=== PATIENT | female | born 1950 | race Caucasian/White ===

== ENCOUNTER 2018-08-31 02:15 | Outpatient (RCR) | payer MEDICARE, BC, SELFPAY ==
[2018-08-16] MEDS: Normal Saline Flush 10 ML SYR IVP (08:39)
[2018-08-16] MEDS: Heparin 500 UNITS/5 ML SYRINGE IVP (08:40)
[2018-08-16 08:45] LABS: Abs Immature Grans 0.02 k/cumm (0.0-0.09); Absolute Basophil Count 0.01 k/cumm (0.0-0.2); Absolute Lymphocyte Count 1.43 k/cumm (1.2-3.4); Absolute Monocyte Count 0.74 k/cumm (0.11-0.7); Absolute Neutrophil Count 3.87 k/cumm (1.2-6.7); Basophils % 0.2; Eosinophils % 3.2; HCT 33.8 % (36.0-46.0); HGB 10.9 g/dL (12.0-15.5); Immature Grans % 0.3; Lymphocytes % 22.8; Mean Corp. HGB Concentration 32.2 g/dL (32.0-36.0); Mean Corpuscular Hemoglobin 28.4 pg (27.0-33.0); Mean Platelet Volume 9.9 fL (8.0-11.0); Monocytes % 11.8; Neutrophils % 61.7; Platelet Count 185 x1000/uL (130-400); RBC 3.84 m/cumm (4.00-5.20); RBC Distribution Width 16.6 % (11.7-14.6); White Blood Cell Count 6.27 k/cumm (4.4-10.8)
[2018-08-16 09:06] LABS: ALT 24 U/L (12-78); AST 20 U/L (15-37); Albumin 3.4 g/dL (3.4-5.0); Alkaline Phosphatase 147 U/L (46-116); Anion Gap 9.4 mmol/L (3-11); BUN 17 mg/dL (7-18); Bilirubin, Total 0.2 mg/dL (0.2-1.0); CO2 25.6 mmol/L (21.0-32.0); CREATININE 0.68 mg/dL (0.55-1.02); Chloride 105 mmol/L (98-107); Glucose 216 mg/dL (70-100); Potassium 4.6 mmol/L (3.5-5.1); Sodium 140 mmol/L (136-145); Total Protein 6.8 g/dL (6.4-8.2)
[2018-08-24] MEDS: Normal Saline Flush 10 ML SYR IVP (09:47)
[2018-08-24] MEDS: Heparin 500 UNITS/5 ML SYRINGE IVP (09:48)
[2018-08-24 10:06] LABS: Abs Immature Grans 0.01 k/cumm (0.0-0.09); Absolute Eosinophil Count 0.08 k/cumm (0.0-0.7); Absolute Lymphocyte Count 0.82 k/cumm (1.2-3.4); Absolute Monocyte Count 0.54 k/cumm (0.11-0.7); Absolute Neutrophil Count 4.04 k/cumm (1.2-6.7); Eosinophils % 1.5; HCT 34.9 % (36.0-46.0); HGB 11.2 g/dL (12.0-15.5); Immature Grans % 0.2; Lymphocytes % 14.9; Mean Corp. HGB Concentration 32.1 g/dL (32.0-36.0); Mean Corpuscular Hemoglobin 28.2 pg (27.0-33.0); Mean Corpuscular Volume 87.9 fL (80-95); Mean Platelet Volume 9.8 fL (8.0-11.0); Monocytes % 9.8; Neutrophils % 73.6; Platelet Count 172 x1000/uL (130-400); RBC 3.97 m/cumm (4.00-5.20); RBC Distribution Width 16.9 % (11.7-14.6); White Blood Cell Count 5.49 k/cumm (4.4-10.8)
[2018-08-24 10:12] LABS: ALT 30 U/L (12-78); AST 20 U/L (15-37); Albumin 3.6 g/dL (3.4-5.0); Alkaline Phosphatase 144 U/L (46-116); Anion Gap 10.8 mmol/L (3-11); BUN 20 mg/dL (7-18); Bilirubin, Total 0.3 mg/dL (0.2-1.0); CO2 24.2 mmol/L (21.0-32.0); Calcium 9.2 mg/dL (8.5-10.1); Chloride 102 mmol/L (98-107); Glucose 240 mg/dL (70-100); Potassium 4.9 mmol/L (3.5-5.1); Sodium 137 mmol/L (136-145); Total Protein 7.1 g/dL (6.4-8.2)
[2018-08-31] MEDS: Normal Saline Flush 10 ML SYR IVP (13:48)
[2018-08-31] MEDS: Heparin 500 UNITS/5 ML SYRINGE IVP (13:49)
[2018-08-31 14:19] LABS: Abs Immature Grans 0.01 k/cumm (0.0-0.09); Absolute Basophil Count 0.01 k/cumm (0.0-0.2); Absolute Eosinophil Count 0.19 k/cumm (0.0-0.7); Absolute Lymphocyte Count 0.81 k/cumm (1.2-3.4); Absolute Monocyte Count 0.75 k/cumm (0.11-0.7); Absolute Neutrophil Count 3.45 k/cumm (1.2-6.7); Basophils % 0.2; Eosinophils % 3.6; HCT 33.5 % (36.0-46.0); HGB 10.9 g/dL (12.0-15.5); Immature Grans % 0.2; Lymphocytes % 15.5; Mean Corp. HGB Concentration 32.5 g/dL (32.0-36.0); Mean Corpuscular Hemoglobin 28.8 pg (27.0-33.0); Mean Corpuscular Volume 88.4 fL (80-95); Mean Platelet Volume 9.4 fL (8.0-11.0); Monocytes % 14.4; Neutrophils % 66.1; Platelet Count 152 x1000/uL (130-400); RBC 3.79 m/cumm (4.00-5.20); RBC Distribution Width 17.2 % (11.7-14.6); White Blood Cell Count 5.22 k/cumm (4.4-10.8)
[2018-08-31 14:53] LABS: ALT 30 U/L (12-78); AST 22 U/L (15-37); Albumin 3.8 g/dL (3.4-5.0); Alkaline Phosphatase 133 U/L (46-116); Anion Gap 9.6 mmol/L (3-11); BUN 14 mg/dL (7-18); Bilirubin, Total 0.2 mg/dL (0.2-1.0); CO2 26.4 mmol/L (21.0-32.0); CREATININE 0.68 mg/dL (0.55-1.02); Calcium 9.3 mg/dL (8.5-10.1); Chloride 102 mmol/L (98-107); Glucose 120 mg/dL (70-100); Potassium 4.4 mmol/L (3.5-5.1); Sodium 138 mmol/L (136-145); Total Protein 7.2 g/dL (6.4-8.2)
== END 2018-09-05 23:59 | disposition home or self-care (01) ==
LOC: INF 02:15
PROVIDERS: PCP Family Medicine; Visit Provider Internal Medicine Hematology & Oncology
DX: C25.0 Malignant neoplasm of head of pancreas (principal); Z45.2 Encounter for adjustment and management of vascular access device
CPT/HCPCS: 36591; 80053; 85025

== ENCOUNTER 2018-09-18 13:51 | Outpatient (RCR) | payer MEDICARE, BC, SELFPAY ==
[2018-09-07] MEDS: Normal Saline Flush 10 ML SYR IVP (07:20)
[2018-09-07] MEDS: Heparin 500 UNITS/5 ML SYRINGE IV (07:20)
[2018-09-07 07:50] LABS: Abs Immature Grans 0.02 k/cumm (0.0-0.09); Absolute Basophil Count 0.01 k/cumm (0.0-0.2); Absolute Eosinophil Count 0.22 k/cumm (0.0-0.7); Absolute Lymphocyte Count 0.36 k/cumm (1.2-3.4); Absolute Monocyte Count 0.78 k/cumm (0.11-0.7); Absolute Neutrophil Count 3.37 k/cumm (1.2-6.7); Basophils % 0.2; Eosinophils % 4.6; HCT 32.8 % (36.0-46.0); Immature Grans % 0.4; Lymphocytes % 7.6; Mean Corp. HGB Concentration 33.5 g/dL (32.0-36.0); Mean Corpuscular Hemoglobin 30.1 pg (27.0-33.0); Mean Corpuscular Volume 89.9 fL (80-95); Mean Platelet Volume 9.6 fL (8.0-11.0); Monocytes % 16.4; Neutrophils % 70.8; Platelet Count 118 x1000/uL (130-400); RBC 3.65 m/cumm (4.00-5.20); RBC Distribution Width 17.6 % (11.7-14.6); White Blood Cell Count 4.76 k/cumm (4.4-10.8)
[2018-09-07 08:09] LABS: ALT 86 U/L (12-78); AST 42 U/L (15-37); Alkaline Phosphatase 164 U/L (46-116); Anion Gap 8.8 mmol/L (3-11); BUN 14 mg/dL (7-18); Bilirubin, Total 0.2 mg/dL (0.2-1.0); CO2 26.2 mmol/L (21.0-32.0); CREATININE 0.68 mg/dL (0.55-1.02); Calcium 8.8 mg/dL (8.5-10.1); Chloride 99 mmol/L (98-107); Glucose 298 mg/dL (70-100); Potassium 4.3 mmol/L (3.5-5.1); Sodium 134 mmol/L (136-145); Total Protein 6.4 g/dL (6.4-8.2)
[2018-09-14] MEDS: Heparin 500 UNITS/5 ML SYRINGE IV (10:35)
[2018-09-14] MEDS: Normal Saline Flush 10 ML SYR IVP (10:40)
[2018-09-14 10:52] LABS: Abs Immature Grans 0.06 k/cumm (0.0-0.09); Absolute Basophil Count 0.01 k/cumm (0.0-0.2); Absolute Eosinophil Count 0.18 k/cumm (0.0-0.7); Absolute Lymphocyte Count 0.29 k/cumm (1.2-3.4); Absolute Neutrophil Count 4.25 k/cumm (1.2-6.7); Basophils % 0.2; Eosinophils % 3.1; HCT 33.7 % (36.0-46.0); HGB 11.2 g/dL (12.0-15.5); Mean Corp. HGB Concentration 33.2 g/dL (32.0-36.0); Mean Corpuscular Hemoglobin 30.4 pg (27.0-33.0); Mean Corpuscular Volume 91.3 fL (80-95); Mean Platelet Volume 8.8 fL (8.0-11.0); Monocytes % 17.3; Neutrophils % 73.4; Platelet Count 144 x1000/uL (130-400); RBC 3.69 m/cumm (4.00-5.20); RBC Distribution Width 17.7 % (11.7-14.6); White Blood Cell Count 5.79 k/cumm (4.4-10.8)
[2018-09-14 11:03] LABS: ALT 106 U/L (12-78); AST 99 U/L (15-37); Albumin 2.3 g/dL (3.4-5.0); Alkaline Phosphatase 272 U/L (46-116); Anion Gap 9.7 mmol/L (3-11); BUN 10 mg/dL (7-18); Bilirubin, Total 0.2 mg/dL (0.2-1.0); CO2 26.3 mmol/L (21.0-32.0); CREATININE 0.68 mg/dL (0.55-1.02); Calcium 8.9 mg/dL (8.5-10.1); Chloride 100 mmol/L (98-107); Glucose 202 mg/dL (70-100); Sodium 136 mmol/L (136-145); Total Protein 6.9 g/dL (6.4-8.2)
[2018-09-18] MEDS: Heparin 500 UNITS/5 ML SYRINGE IV (14:02)
[2018-09-18] MEDS: Normal Saline Flush 10 ML SYR IVP (14:02)
[2018-09-18 14:33] LABS: ALT 57 U/L (12-78); AST 40 U/L (15-37); Albumin 3.3 g/dL (3.4-5.0); Alkaline Phosphatase 272 U/L (46-116); Anion Gap 9.3 mmol/L (3-11); BUN 14 mg/dL (7-18); Bilirubin, Total 0.2 mg/dL (0.2-1.0); CO2 25.7 mmol/L (21.0-32.0); Calcium 8.5 mg/dL (8.5-10.1); Chloride 99 mmol/L (98-107); Glucose 242 mg/dL (70-100); Potassium 4.3 mmol/L (3.5-5.1); Sodium 134 mmol/L (136-145); Total Protein 6.9 g/dL (6.4-8.2)
[2018-09-18 14:52] LABS: Abs Immature Grans 0.03 k/cumm (0.0-0.09); Absolute Basophil Count 0.01 k/cumm (0.0-0.2); Absolute Eosinophil Count 0.11 k/cumm (0.0-0.7); Absolute Lymphocyte Count 0.42 k/cumm (1.2-3.4); Absolute Neutrophil Count 4.87 k/cumm (1.2-6.7); Basophils % 0.2; Eosinophils % 1.8; HCT 34.3 % (36.0-46.0); HGB 11.3 g/dL (12.0-15.5); Immature Grans % 0.5; Lymphocytes % 6.8; Mean Corp. HGB Concentration 32.9 g/dL (32.0-36.0); Mean Corpuscular Hemoglobin 30.3 pg (27.0-33.0); Mean Platelet Volume 10.2 fL (8.0-11.0); Monocytes % 11.4; Neutrophils % 79.3; Platelet Count 167 x1000/uL (130-400); RBC 3.73 m/cumm (4.00-5.20); RBC Distribution Width 17.7 % (11.7-14.6); White Blood Cell Count 6.14 k/cumm (4.4-10.8)
== END 2018-10-06 23:59 | disposition home or self-care (01) ==
LOC: INF 13:51
PROVIDERS: PCP Family Medicine; Visit Provider Internal Medicine Hematology & Oncology
DX: C25.0 Malignant neoplasm of head of pancreas (principal); Z45.2 Encounter for adjustment and management of vascular access device
CPT/HCPCS: 36591; 80053; 85025

== ENCOUNTER 2024-07-31 11:44 | Outpatient (RCR) | payer MEDICARE, BC, SELFPAY ==
[2024-07-31] MEDS: Normal Saline Flush 10 ML SYR IVP (12:05)
[2024-07-31 12:39] LABS: Abs Immature Grans 0.06 10^3/uL (0.0-0.06); Absolute Basophil Count 0.02 10^3/uL (0.0-0.2); Absolute Eosinophil Count 0.19 10^3/uL (0.0-0.7); Absolute Lymphocyte Count 0.83 10^3/uL (1.2-3.4); Absolute Monocyte Count 0.79 10^3/uL (0.1-0.8); Absolute Neutrophil Count 6.34 10^3/uL (1.2-6.7); Basophils % 0.2 %; Eosinophils % 2.3 %; HGB 9.3 g/dL (11.2-15.7); Immature Grans % 0.7 %; Lymphocytes % 10.1 %; MCH 29.2 pg (27.0-33.0); MCHC 33.2 % (32.0-36.0); MCV 88 fL (80-95); MPV 9.2 fL (8.0-11.0); Monocytes % 9.6 %; Neutrophils % 77.1 %; Platelet Count 221 10^3/uL (130-400); RBC 3.19 10^6/uL (3.93-5.22); RDW 11.9 % (11.7-14.6); RDW-SD 38.4 fL; Reticulocyte 2.1 % (0.5-2.4); WBC 8.23 10^3/uL (4.4-10.8)
[2024-07-31 13:00] LABS: ALT 50 U/L (14-59); AST 38 U/L (15-37); Albumin 3.7 g/dL (3.4-5.0); Alkaline Phosphatase 122 U/L (46-116); Anion Gap 9.6 mmol/L (3-11); BUN 19 mg/dL (7-18); Bilirubin, Total 0.2 mg/dL (0.2-1.0); CO2 26.4 mmol/L (21.0-32.0); CREATININE 0.8 mg/dL (0.55-1.02); Calcium 9.2 mg/dL (8.5-10.1); Chloride 96 mmol/L (98-107); Estimated GFR 77.27 (mL/min/1.73m2); Glucose 189 mg/dL (74-106); Potassium 4.1 mmol/L (3.5-5.1); Sodium 132 mmol/L (136-145); Total Protein 6.9 g/dL (6.4-8.2)
[2024-07-31 13:27] LABS: Ferritin 187 ng/mL (8-252)
[2024-07-31 13:44] LABS: Iron 54 ug/dL (50-170); Total Iron Binding Capacity 280 ug/dL (250-450); Transferrin Sat 19 % (15-50)
[2024-08-02 10:02] LABS: CA 19-9 <2 U/mL (<35)
== END 2024-08-05 23:59 | disposition home or self-care (01) ==
LOC: INF 11:44
PROVIDERS: Internal Medicine Hematology & Oncology; PCP Family Medicine; Visit Provider Internal Medicine Hematology & Oncology
DX: C25.9 Malignant neoplasm of pancreas, unspecified (principal); C78.00 Secondary malignant neoplasm of unspecified lung; Z45.2 Encounter for adjustment and management of vascular access device
CPT/HCPCS: 36591; 80053; 82668; 82728; 83540; 83550; 85025; 85045; 86301

== ENCOUNTER 2024-10-23 07:38 | Outpatient (RCR) | payer MEDICARE, BC, SELFPAY ==
[2024-10-23 08:05] LABS: Abs Immature Grans 0.02 10^3/uL (0.0-0.06); HCT 27.3 % (36.0-46.0); HGB 9.1 g/dL (11.2-15.7); Immature Grans % 0.4 %; MCH 28.1 pg (27.0-33.0); MCHC 33.3 % (32.0-36.0); MCV 84 fL (80-95); MPV 9.2 fL (8.0-11.0); Platelet Count 195 10^3/uL (130-400); RBC 3.24 10^6/uL (3.93-5.22); RDW 13.3 % (11.7-14.6); RDW-SD 41.5 fL; WBC 5.25 10^3/uL (4.4-10.8)
[2024-10-23] MEDS: Normal Saline Flush 10 ML SYR IVP (08:09)
[2024-10-23 08:32] LABS: Ferritin 88 ng/mL (8-252)
== END 2024-11-05 23:59 | disposition home or self-care (01) ==
LOC: INF 07:38
PROVIDERS: PCP Family Medicine; Visit Provider Internal Medicine Hematology & Oncology
DX: D50.8 Other iron deficiency anemias (principal); Z45.2 Encounter for adjustment and management of vascular access device
CPT/HCPCS: 36591; 82728; 85025